=== PATIENT | female | born 1985 ===

== ENCOUNTER 2025-02-11 17:03 | Inpatient (IN) | payer BC, SELFPAY ==
[2025-02-11 17:14] VITALS: BP 142/86; PULSE 76
[2025-02-11 17:30] VITALS: BP 144/77; PULSE 75
[2025-02-11 17:31] VITALS: PULSE 82; O2SAT 99
[2025-02-11 17:45] VITALS: BP 132/78; PULSE 73
[2025-02-11 18:00] VITALS: BP 143/79; PULSE 71; BMI 30.1
--- NOTE | 2025-02-11 18:28 | P.OBHP_ITS ---
OB - H&P: HPI Labor/Induction History of Present Illness Date Seen: 02/11/25 Chief Complaint: The patient is a 39 year old 1 para 0 at 39+5 weeks gestation by LMP and confirmed with 1st trimester US, who presents for IOL for chronic hypertension. Chief complaint: Maternity Indications for induction: maternal hypertension Narrative: Emma Tran is a 39 year old at 39+5 weeks here for IOL for chronic HTN and AMA. She is currently well controlled without medication. She is not aware of any contractions, no LOF. Baby is active. History of Present Dating criteria: based on LMP care: good care Ultrasounds: normal 1st trimester US and normal mid trimester US (level 2) complications: chronic hypertension Labs Blood type: O (+) positive Rubella: immune RPR/VDLR: nonreactive GBS status: positive HBsAG: negative Review of Systems Status of ROS: Reports: 6 or more systems reviewed and unremarkable except as noted in History and below Meds Home Medications and Allergies Allergies Allergy/AdvReac Type Severity Reaction Status Date / Time ketorolac (From Toradol) Allergy Severe Difficulty Verified 02/11/25 02:17 Breathing morphine Allergy Mild Verified 02/11/25 17:48 OB - H&P: Exam Physical Exam: Vital signs: Pulse BP Pulse Ox 71 143/79 H 99 02/11/25 18:00 02/11/25 18:00 02/11/25 17:31 Constitutional: Constitutional: no acute distress Routine HEENT Exam: Head: Present atraumatic Routine Neck Exam: Neck: Present full ROM Routine Respiratory Exam: Respiratory: Present CTA bilaterally Routine Cardiovascular Exam: Cardiovascular: RRR Detailed Labor and Delivery Exam: Patient Gravid: yes Dilation (cm): 0 Cervix position: mid Consistency: medium Contraction frequency (min): 5 Fetus (Single): Station: -2 Amniotic Membrane Status: intact Heart Rate Baseline: 140 Monitor Accelerations: Present M onitor Decelerations: None Correction Variability: Moderate (6-25) Routine Back/Spine/Pelvis Exam: Back/Spine: full ROM Routine Skin Exam: Present intact Routine Neurological Exam: Present alert, oriented X3 and CN II-XII intact Routine Psychiatric Exam: Present normal affect and normal thought process OB - Problem Based A/P Additional Plan (1) Term : Status: Acute (2) Chronic hypertension affecting : Status: Acute Plan Cervix is not dilated enough to able to place a cook, will plan cytotec overnight to help with cervical ripening. Delivery/Labor/Induction Plan Plan: induction Induction method: per misoprostol protocol
[2025-02-12] VITALS (149 sets, daily range): BP systolic 79–138; BP diastolic 41–73; PULSE 48–139; RESP 12–20; TEMP 36.3–37.4; O2SAT 88–100
[2025-02-12] MEDS: ACETAMINOPHEN 500 MG TABLET 1000 MG PO ×2 (00:06→23:44)
[2025-02-12 00:24] LABS: Hematocrit 34.7 % (33.0-51.0); Hemoglobin* 11.9 gm/dL (12.0-16.0); Immature Granulocytes Pct Auto 1.3 %; Mean Corpuscular HGB Conc 34 gm/dL (32-36); Mean Corpuscular Hemoglobin 33 pg (26-34); Mean Corpuscular Volume 98 fL (80-100); RDW Coefficient of Variation % 13.0 % (11.5-15.5); Red Blood Count 3.56 m/uL (4.00-5.20); White Blood Count* 15.86 K/uL (4.50-11.00)
[2025-02-12 00:34] LABS: Immature Granulocytes Abs Auto 0.20 K/uL (0.00-0.30); Lymphocytes Absolute Auto 2.40 K/uL (0.90-2.90); Slide Review Reflex No
[2025-02-12] MEDS: ONDANSETRON ODT 4 MG TAB PO (05:17)
[2025-02-12] MEDS: LACTATED RINGERS 1000 ML 1,000 ML 1125 ML IV (06:25)
--- NOTE | 2025-02-12 09:00 | P.OBPN_ITS ---
Subjective Date Seen: 02/12/25 Narrative: pt here for IOL secondary to chronic hypertension. Received 3 doses vaginal cytotec overnight. Reports some cramping and round ligament pain. Objective Vital Signs: Last Vital Signs Temp 99.3 F 02/12/25 07:58 Pulse 71 02/12/25 07:58 Resp 12 02/12/25 07:58 BP 126/64 02/12/25 07:58 Pulse Ox 100 02/12/25 07:58 Pelvic Exam Dilation (cm): 1 Effacement (%): 50 Station: -1 Contractions Contraction pattern: Irregular Assessment Assessment: induction ongoing Station: -2 Heart Rate Baseline: 130 Longterm Variability: Moderate (6-25) Monitor Accelerations: Present Monitor Decelerations: None Plan Plan: at 39w6d gestation with chronic HTN here for IOL. Additional items as below: AMA on ASA 81 mg Stage I chronic HTN in early , normal since (no BP > 140/90). Per [facility] visit on 09/22/24, Given she has been normotensive and has never been on medication for HTN, reasonable to defer additional surveillance until and unless BP > 140/90 or medication is started. RUTH ANN on Lexapro GBS positive 1. IOL 2/2 chronic HTN - Cook catheter placed with 60 cc per balloon at 0815. Patient tolerated well. - Plan to leave for 12 hours, unless expelled on its own sooner. Will consider pit and AROM when able. - If pressures > 140/90, obtain PreE labs 2. GBS positive start ABX prophylaxis when in labor 3. RUTH ANN continue Lexapro Leslie Guthrie,
[2025-02-12] MEDS: ESCITALOPRAM 10 MG TABLET 5 MG PO (09:11)
[2025-02-12] MEDS: AMPICILLIN 2 GM in 0.9 % SODIUM CHLORIDE Mini-bag 100 ML IVPB (14:28)
[2025-02-12] MEDS: LACTATED RINGERS 1000 ML 1,000 ML 1200 ML IV (15:42)
[2025-02-12] MEDS: LIDOCAINE 2% (PF) 5 ML VIAL EPIDURAL (16:23)
[2025-02-12] MEDS: ROPIVACAINE 0.2% 100 ml 100 ML 12 MG EPIDURAL (16:25)
--- NOTE | 2025-02-12 16:32 | PM.ANBPRC ---
[facility] Social History Smoking Status: Never smoker Meds Home Medications and Allergies Allergies Allergy/AdvReac Type Severity Reaction Status Date / Time ketorolac (From Toradol) Allergy Severe Difficulty Verified 02/11/25 02:17 Breathing morphine Allergy Mild Verified 02/11/25 17:48 Results Labs Labs: Laboratory Results - last 24 hr 02/12/25 00:18 WBC 15.86 H RBC 3.56 L Hgb 11.9 L Hct 34.7 MCV 98 MCH 33 MCHC 34 RDW Coeff of Hira 13.0 Plt Count 293 Neut % (Auto) 73.4 H Lymph % (Auto) 15.0 L [place] % (Auto) 8.3 Eos % (Auto) 1.7 Baso % (Auto) 0.3 Neut # (Auto) 11.60 H Lymph # (Auto) 2.40 [place] # (Auto) 1.30 H Eos # (Auto) 0.30 Baso # (Auto) 0.00 Abs Immat Gran (auto) 0.20 Imm/Tot Granulo (auto) 1.3 Blood Type O Positive Antibody Screen NEGATIVE Vital Signs Vital Signs: Last Vital Signs Temp 98.9 F 02/12/25 14:15 Pulse 67 02/12/25 16:30 Resp 16 02/12/25 14:15 BP 106/57 L 02/12/25 16:30 Pulse Ox 100 02/12/25 16:31 Weight: 81.873 kg Height: 165.1 cm Anesthesia Procedures Epidural Insertion Patient Location: OB Start Time: 15:50 Stop Time: 16:50 Start Date: 02/12/25 Stop Date: 02/12/25 Reason for Block: procedure for pain Patient Position: sitting Performed By: Emmanuelle Martinez Preanesthetic Checklist: IV checked, risks and benefits discussed, monitors and equipment checked, pre-op evaluation, timeout performed and anesthesia consent Prep: chlorhexidine gluconate Monitoring: blood pressure monitoring, continuous pulse oximetry and heart rate Approach: midline Vertebral Space: lumbar (1-5) Epidural Technique: HERO saline Needle Type: Tuohy needle Injection Technique: continuous catheter (continuous catheter) Needle gauge: 17 Needle Length (cm): 10 cm Needle Insertion Depth (cm): 7 Catheter Gauge: 19 Catheter Type: multi-orifice Catheter at skin depth (cm): 15 Test Dose Result: negative and lidocaine 1.5% with epinephrine 1 to 200,000
[2025-02-12] MEDS: PHENYLEPHRINE 100 MCG/ML SYRINGE IVP ×3 (17:18→18:22)
--- NOTE | 2025-02-12 17:35 | P.OBPN_ITS ---
Subjective Date Seen: 02/12/25 Narrative: Patient feeling more comfortable with epidural. SROM occurred around 12:30 with clear fluid. Objective Vital Signs: Last Vital Signs Temp 98.1 F 02/12/25 17:04 Pulse 60 02/12/25 17:32 Resp 16 02/12/25 14:15 BP 98/46 L 02/12/25 17:32 Pulse Ox 100 02/12/25 17:32 Pelvic Exam Dilation (cm): 7 Effacement (%): 70 Station: 0 Contractions Contraction Frequency: Q3-5 min Assessment Station: -1 Heart Rate Baseline: 130 Monitor Accelerations: Present Monitor Decelerations: Variable Plan Plan: Recurrent variables and some late decelerations on FHT. Had made some progress. FSE and IUPC in place. Contraction mVUs are inadequate at this time. BPs have been low and patient has received several doses of both phenylephrine and ephedrine. Manager Mental Health on-call aware. Will continue to monitor.
[2025-02-12] MEDS: ePHEDrine sulfate 5 MG/ML inj 10 MG IVP ×2 (17:50→18:14)
[2025-02-12] MEDS: SODIUM CHLORIDE 0.9 % (FLUSH) 10 ML SYRINGE IVF (17:51)
[2025-02-12] MEDS: LACTATED RINGERS 1000 ML 1,000 ML 125 ML IV ×2 (18:01→23:47)
[2025-02-12] MEDS: AMPICILLIN 1 GM in 0.9 % SODIUM CHLORIDE Mini-bag 100 ML IVPB (18:29)
[2025-02-12] MEDS: AZITHROMYCIN 500 MG in 0.9 % SODIUM CHLORIDE 250 ml 250 ML 255 MG IVPB (20:26)
--- NOTE | 2025-02-12 20:35 | P.OBCN_ITS ---
OB - CN: HPI Date of Consult Time Seen by Provider: 20:35 Date Seen: 02/12/25 Patient: Noam Patient Consult date: 02/12/25 Requesting Physician: Monserrat Roberto MD Primary Care Provider: Leslie Guthrie DO Consult Narrative Reason for consult: nonreassuring FHTs Narrative: Emma is a 39 year old G 1 P 0 at 39 and 6/7 weeks gestation that was admitted to the Center on 02/11/25 for induction of labor due to chronic hypertension not on medication. Her blood pressure has been normal throughout her entire hospital course. I was asked to consult because the patient was having recurrent variable decelerations which improved with an amnio infusion and the patient in hands and knees position but her contractions are not adequate and with the recurrent deceleration not safe to add Pitocin for augmentation. It is my recommendation to perform a primary low-transverse C- section for nonreassuring heart rate tracing remote from delivery. Please see Dr. Guthrie's admission History and Physical note for details of the patient's course. History of Present Dating criteria: based on LMP Ultrasounds: normal 1st trimester US and normal mid trimester US complications: chronic hypertension History History 1 Elective abortions Para 0 Spontaneous abortions Hx # Term Pregnancies Ectopic pregnancies Hx # Pregnancies Multiple births Number of Living Children 0 Labs Blood type: O (+) positive Rubella: immune RPR/VDLR: nonreactive GBS status: positive HBsAG: negative OB Labs: Lab Assessment Start: 02/11/25 17:45 Freq: ONCE Status: Active Protocol: PC.OBGBS Activity Type Activity Date Activity User E-sign Co-sign Detail Recorded Client Recorded Date Recorded By Document 02/11/25 18:02 CUDDY No Response 02/11/25 18:03 CUDDYH 02/11/25 18:02 Lab Assessment GBS Status positive Is Patient Allergic to Penicillin? No Treatment Required OK Are Labs Available Yes Maternal Blood Type O Maternal RH Factor Positive Evaluate Maternal Rubella Immune Status Immune Hepatitis B Surface Antigen Negative Maternal HIV Status Negative Maternal Syphillis (RPR) Status Negative PFSH PFSH Social History What is your current living situation?: I presently have a place to live Problems where you live: no known problems In the past 12 months, utilities in danger of being shut off: no In past 12 months, lack of transportation kept you from medical appts, meetings, work, or getting things needed for daily living: no In the past 12 mos, have been you worried that your food would run out before you had money to buy more?: never true In the past 12 mos, the food you bought just didn't last and you didn't have money to buy more?: never true Smoking Status: Never smoker How often does anyone, including family, friends and others, physically hurt you : never How often does anyone, including family, friends and others, insult or talk down to you: never How often does anyone, including family, friends and others, threaten you with harm: never How often does anyone, including family, friends and others, scream or curse at you: never Meds Home Medications and Allergies Allergies Allergy/AdvReac Type Severity Reaction Status Date / Time ketorolac (From Toradol) Allergy Severe Difficulty Verified 02/11/25 02:17 Breathing morphine Allergy Mild Verified 02/11/25 17:48 OB - H&P: Exam Physical Exam: Vital signs: Temp Pulse Resp BP Pulse Ox 98 F 75 16 110/53 L 98 02/12/25 17:58 02/12/25 20:25 02/12/25 17:58 02/12/25 20:25 02/12/25 19:52 Narrative: General: Pleasant, , comfortable with an epidural in no acute distress. Vital signs: Included in her electronic medical record. Heart: Regular rate and rhythm without gallop, rub or murmur. Chest: Clear to auscultation bilaterally. Abdomen: Gravid, nontender FSE: Baseline: 135bpm. Moderate variability. Accelerations: Absent. Decelerations: Repetitive variable decelerations to as low as 60 beats per minute. Category 2. SVE: Per Dr. Guthrie: 8/90%/0 Extremities: No pain or edema. OB - Results Labs Labs: Short CBC 02/12/25 Range/Units 00:18 WBC 15.86 H (4.50-11.00) K/uL Hgb 11.9 L (12.0-16.0) gm/dL Hct 34.7 (33.0-51.0) % Plt Count 293 (140-440) K/uL OB - CN: A/P Assessment and Plan (1) Term : Status: Acute (2) Chronic hypertension affecting : Status: Acute (3) Non-reassuring heart rate or rhythm affecting management of mother: Status: Acute Plan 1. Recommended primary low-transverse section. 2. Consent form reviewed and signed. 3. Blood type: O positive. GBS: Positive with adequate treatment. 4. Operating room crew notified.
--- NOTE | 2025-02-12 20:44 | PM.PROC ---
Procedure Note Time Seen by Provider: 21:55 Date Seen: 02/12/25 Date of procedure: 02/12/25 Will [facility] bill your pro fee for this procedure?: Yes Procedure: Preoperative diagnosis: 39-year-old 1 para 0 at 39 and 6/7 weeks repetitive variable decelerations in the heart rate Postoperative diagnosis: Same Procedure: Primary low-transverse section, TAPS Anesthesia: Epidural Surgeon: Monserrat Roberto MD Metal Bench Patternmaker: Not applicable Quantitative blood loss: 548 mL IV Fluid: 600 mL Urine output: 50 mL, evette colored at the end of the procedure. Specimen: Placenta Drain(s): Armstrong to gravity Findings: A live female infant was delivered from the ROT position at 21:18 p.m.. Apgars were 8 at 1 min and 9 at 5 min respectively. weight: 6 lb 11 oz, 3045 g. Nuchal cord(s): yes: A body cord that the was delivered through. The placenta was delivered spontaneously and complete at 21:20 p.m.. Amniotic fluid: Clear. Normal uterus, fallopian tubes and ovaries were noted. Other findings: 1 cm anterior, serosal fibroid in the mid uterine body. Procedure: Emma was taken to the OR where epidural anesthetic was found be adequate. A Armstrong catheter was placed. The patient was then placed in the dorsal supine position with a leftward tilt. She was then prepped and draped in a normal sterile manner. A Pfannenstiel skin incision was made and carried through sharply to the underlying layer of fascia. Fascia was incised in the midline and this incision carried laterally with Hardy scissors. The superior aspect of fascial incision was grasped with Racheal clamps, tented up, and the rectus muscles dissected off with a combination of blunt and sharp dissection. The inferior aspect of the fascial incision was grasped with Racheal clamps, tented up and again the rectus muscles dissected off with a combination of blunt and sharp dissection. The rectus muscles were in the midline. The peritoneum was entered bluntly. This opening was extended bluntly. An Roly-O self-retaining retractor was placed. A bladder flap was not created. Uterus was incised in a low transverse manner in the midline. This incision carried laterally with blunt pressure on the inferior and superior aspects of the uterine incision. The amniotic sac was ruptured. The infant's head and body was delivered atraumatically. The infant was shown to the patient and her support person and then handed to waiting pediatric and nursing staff. The placenta was delivered spontaneously. The uterus was cleared of clots and debris. The uterine incision was re-approximated with the uterus in vivo. The 1st layer using 0-Vicryl in a running, locked manner. The 2nd layer using 0-Monocryl in a running, vertical, imbricating layer. Additional sutures needed for hemostasis: no. Excellent hemostasis was verified. The Roly retractor was removed. The rectus muscles were not reapproximated. The peritoneum was not repaired. The rectus muscles were then closely inspected to verify hemostasis. Hemostasis was obtained with bipolar cautery. The fascia was then re-approximated using 0-Maxon loop in a running manner. The subcutaneous tissue was then irrigated with saline and hemostasis obtained with bipolar cautery. The subcutaneous tissue was re-approximated using 3-0 plain gut interrupted sutures. The skin was reapproximated using 4-0 Monocryl in a running subcuticular manner. Exofin skin adhesive and a Mepilex dressing were applied. The patient tolerated this procedure well. Sponge, lap and instrument counts were correct x2 active to the procedure. Patient was taken to the recovery area in stable condition. The patient received 2g of IV Ancef and 500mg IV azithromycin prior to skin incision. Anesthesia: epidural Surgeon: Monserrat Hurley MD Estimated blood loss (mL): 548 IV fluids (mL): 600 Urine output (mL): 50 Pathology: specimen obtained, sent to pathology Condition: stable Disposition: floor
[2025-02-13] VITALS (9 sets, daily range): BP systolic 114–127; BP diastolic 62–73; PULSE 60–76; RESP 14–18; TEMP 36.3–36.8; O2SAT 97–99
--- NOTE | 2025-02-13 00:30 | P.ANES_ITS ---
Anesthesia Charges Start Date/Time Anesthesia Start Date: 02/12/25 Anesthesia Start Time: 20:52 Stop Date/Time Anesthesia Stop Date: 02/12/25 Anesthesia Stop Time: 22:10 Summary Emergency: BOMB SQUAD COMMANDER Coding CPT Codes CPT Codes: ANES/ANALG CS DELIVER ADD-ON - 50653 ([id number]) P2 - PATIENT W/MILD SYST DISEASE Additional Codes: Summary - Emergency: BOMB SQUAD COMMANDER ([id number])
--- NOTE | 2025-02-13 00:30 | W.ANESCHARGE ---
Anesthesia Charges Start Date/Time Anesthesia Start Date: 02/12/25 Anesthesia Start Time: 20:52 Stop Date/Time Anesthesia Stop Date: 02/12/25 Anesthesia Stop Time: 22:10 Summary Emergency: FLAKE OR SHRED ROLL OPERATOR Coding CPT Codes CPT Codes: ANES/ANALG CS DELIVER ADD-ON - 29420 ([id number]) P2 - PATIENT W/MILD SYST DISEASE Additional Codes: Summary - Emergency: FLAKE OR SHRED ROLL OPERATOR ([id number])
--- NOTE | 2025-02-13 00:31 | P.NB_ITS ---
Nerve Block Nerve Block Time Seen by Provider: 22:00 Date Seen: 02/12/25 Type of block requested by surgeon for post-operative analgesia: TAP Side: bilateral Time out performed: Yes Verification of patient name: Yes Verification of date of : Yes Name of person performing procedure: Emmanuelle Martinez Continuous monitoring Was continuous monitoring of O2 sat, B/P, color television console monitor, recorded every 15 minutes?: Yes Procedure Checklist: sterile prep, needles and gloves Ultrasound guided. Images saved: Yes Medications given in 5ml increments after negative aspiration: Marcaine %: 0.25 mL: 30 Needle gauge: 20 and Exparel mL: 10 Needle gauge: 20 Patient tolerated procedure well: Yes Block Charges Block Charge (with Pro Fee): TAP Bilateral Use of Ultrasound Machine for Block: Yes- US Guidance/pain block
[2025-02-13] MEDS: IBUPROFEN 600 MG TABLET PO ×4 (02:45→23:30)
[2025-02-13] MEDS: ACETAMINOPHEN 500 MG TABLET 1000 MG PO ×3 (06:23→21:15)
[2025-02-13 08:16] LABS: Hemoglobin* 10.8 gm/dL (12.0-16.0)
[2025-02-13] MEDS: ESCITALOPRAM 10 MG TABLET 5 MG PO (10:03)
--- NOTE | 2025-02-13 17:04 | P.OBPN_ITS ---
OB - PN:Subj Subjective Time Seen by Provider: 11:50 Date Seen: 02/13/25 Patient comments OB post-: no complaints, pain well controlled and tolerating diet [place] infant status: and doing well [place] feeding status: exclusively Narrative: Day 1:? Delivery at 39 and 6/7 weeks.? ?? Complications:? cHTN in ; C/section for distress. Emma feels well.? Her pain is well controlled with current medications.? She has no new complaints.? Armstrong catheter has not yet been removed, ambulation is improving.?Has a good appetite, is tolerating a general diet, is passing flatus, and has not had a bowel movement.? Has moderate amount of rubra lochia.? OB - PN: Obj Exam Physical Exam: Vital signs: Temp Pulse Resp BP Pulse Ox O2 Del Method 97.6 F 70 16 114/70 98 Room Air 02/13/25 12:49 02/13/25 12:49 02/13/25 12:49 02/13/25 12:49 02/13/25 12:49 02/13/25 12:49 Narrative: GENERAL APPEARANCE:? normal affect, alert, no distress? MOOD:? appropriate? CHEST:? clear to auscultation and percussion? HEART:? regular rate and rhythm? BREASTS: soft, nontender, no erythema, nipples intact, flat; using nipple shield ABDOMEN:? soft, non-tender the uterine fundus is firm @ U and is appropriate for the stage of recovery. Incision covered by C/D/I dressing.? EXTREMITIES:? normal and no edema? OB - PN: Obj Data Labs Labs: Laboratory Results - last 24 hr 02/12/25 02/13/25 00:18 08:11 Hgb 10.8 L RPR Screen Non Reactive OB - PN: A/P Delivery Assessment and Plan (1) care and examination of lactating mother: Status: Acute (2) Status post primary low transverse section: Status: Acute (3) Chronic hypertension affecting : Status: Acute Plan 39 year old on day 1.? 1. cares.?Remove Armstrong catheter. This CNM assisted in positioning and observed . 2. Anticipate discharge tomorrow.? Plan day: 1 Plan: routine care
[2025-02-14 00:50] VITALS: BP 121/72; PULSE 72; RESP 18; O2SAT 96
[2025-02-14 08:17] VITALS: BP 114/74; PULSE 60; RESP 16; TEMP 36.7; O2SAT 98
[2025-02-14] MEDS: ESCITALOPRAM 10 MG TABLET 5 MG PO (09:46)
[2025-02-14] MEDS: IBUPROFEN 600 MG TABLET PO (09:46)
[2025-02-14] MEDS: DOCUSATE SODIUM 100 MG CAPSULE PO (09:52)
--- NOTE | 2025-02-14 11:46 | P.DS_ITS ---
DS: Providers Provider Time Seen by Provider: 08:55 Date Seen: 02/14/25 Date of admission: 02/11/25 17:03 Primary care physician: Leslie Guthrie DO Admitting Clinician: Leslie Guthrie DO Attending Physician on discharge: Monserrat Roberto MD Date of Discharge: 02/14/25 DS: Diagnosis Discharge Diagnosis (1) Status post primary low transverse section: Status: Acute Exam Narrative: Exam Narrative: General: Pleasant, , well groomed woman in no acute distress. Vital signs: Per electronic medical record Heart: Regular rate and rhythm without gallop, rub or murmur. Chest: Clear to auscultation bilaterally. Abdomen: Soft, nontender, mildly distended. No CVA or flank tenderness. Incision: Clean, dry and intact with sutures and skin adhesive gel. Extremities: No pain or edema Const: Vital Signs, click to edit/add: Vital Signs - 24 hr 02/13/25 12:49 02/13/25 17:03 02/13/25 20:45 Temperature 97.6 F 97.3 F L Pulse Rate [Pulse Oximeter] 70 70 71 Respiratory Rate 16 16 18 Blood Pressure [Le ft Arm] 114/70 121/68 123/73 Pulse Oximetry 98 99 97 Oxygen Delivery Me thod Room Air Room Air Room Air 02/14/25 00:50 02/14/25 08:17 Temperature 98.1 F Pulse Rate [Pulse Oximeter] 72 60 Respiratory Rate 18 16 Blood Pressure [Le ft Arm] 121/72 114/74 Pulse Oximetry 96 98 Oxygen Delivery Me thod Room Air Room Air OB - DS: Summary Hospital Course Hospital Course: Emma is a 39 year old G 1 P 0 now 1 at 39 and 5/7 weeks gestation that was admitted to the Center on 02/11/25 for induction of labor due to chronic hypertension not on medication. The fetus had repetitive variable decelerations somewhat them going to as low as 60 beats per minute so an urgent section was recommended. She had an uncomplicated delivery. She delivered a viable female infant. She is breast feeding. the patient has done well. Her blood pressure has been completely normal . She is considering going home later today so discharge instructions and paperwork were completed. She decides to stay overnight it can be held and I will see her tomorrow. She is tolerating a regular diet, passing flatus and has appropriate/adequate urine output. Peripartum Data Procedures: Procedures Operation Date: 02/12/25 20:52 Actual Procedure Side Surgeon p Primary Low Transverse Section Monserrat Roberto MD Gender: Female Status at Discharge Functional status at discharge: independent ambulation Overall status at discharge: patient is progressing back to baseline Time Spent with Patient Time attestation: Total time spent providing and/or coordinating discharge services: Time spent: Less than 30 minutes Discharge Plan Discharge Disposition: Home, Self-Care Date of Admission: 02/11/25 17:03 Attending Provider on Discharge: Monserrat Roebrto Primary Care Provider: Leslie Guthrie Condition: Stable Anticipated Discharge Date/Time: 02/14/25 18:30 Discharge Medications: New docusate sodium 100 mg Capsule 100 mg PO BID PRN (Reason: constipation) Qty: 100 0RF ibuprofen 600 mg Tablet 600 mg PO Q6H PRN (Reason: Pain) Qty: 30 0RF oxycodone 5 mg Tablet 5 mg PO 3XD PRN (Reason: Pain) Qty: 21 0RF Discharge Orders: Discharge Order (Routine); Ordered 02/14/25 Ordered By: Monserrat Roberto Patient Education: (DC) Additional Instructions: ACTIVITY RESTRICTIONS: Lifting Restrictions: 20 pounds for 6 weeks Do not submerge incision under water X 2 weeks? Nothing vaginally for 6 weeks: no tampons or intercourse Do not drive while taking narcotic pain medication(s) No high impact/core exercises: 6 weeks Off Work or School for a minimum of 8 weeks NO RESTRICTIONS FOR: Walking Climbing stairs Being the passenger in a motor vehicle SYMPTOMS TO REPORT TO YOUR DOCTOR: Bleeding that saturates more than one pad per hour Passing clots larger than the size of a golf ball Pain not relieved by prescribed medication Fever: Oral temperature >/= 100.4 Fahrenheit A foul vaginal odor Difficulty in emotions, mood and functions Thoughts of hurting yourself and/or Painful, reddened area in your breast Any drainage, redness or tenderness in your IV/epidural sites or incision. Severe headache that doesn't improve after taking medications Changes in vision, including temporary loss of vision, blurred vision, and/or light sensitivity Upper abdominal pain (especially if under ribs on the right side) Decrease in urination or painful, frequent urinating Chest pain Shortness of breath Tenderness or pain with redness and/swelling in the calf(s) of your leg Concerns about your incision: increased pain, swelling, redness or drainage. Follow-up Appointments: 1. 2-week post-operative visit with OB: incision check, with provider who performed section is preferred: Monserrat Hurley MD. Clinic number: [phone]. 2. 6-week visit for an annual exam with your Family Medicine Provider at [facility]. For pain: 1. Ibuprofen 600mg every 6hr. 2. ES Tylenol 1000 mg (2 tablets) every 6 hours 3. Alternate the above medicines every 3 hours. For example: Take ibuprofen at 8:00 a.m., then Tylenol at 11:00 a.m., then ibuprofen 2:00 p.m., etc. Add oxycodone 1-2 tablets every 4-6 hours as needed for breakthrough pain. consultation services are available to all mothers and babies for the first year after delivery.? To make an appointment, please call [phone]. Activity Level: Other Discharge Diet: Regular Follow Up Appointments: Leslie Guthrie DO [Primary Care Provider, Family Practice] [facility] [Outside] Monserrat Roberto MD [Staff Physician, DEVELOPMENT EXPERT] Forms: [facility] Info Instructions
[2025-02-14] MEDS: ACETAMINOPHEN 500 MG TABLET 1000 MG PO (14:11)
== END 2025-02-14 14:10 | disposition home or self-care (01) | DRG 540 ==
PROVIDERS: Family Medicine; Admitting Provider Family Medicine; PCP Family Medicine; Visit Provider Obstetrics & Gynecology
PROC: 10D00Z1 Extraction of Products of Conception, Low, Open Approach (ICD-10-PCS; CPT 59514; principal; 2025-02-12 22:10)
DX: O10.92 Unspecified pre-existing hypertension complicating childbirth (principal); O76 Abnormality in fetal heart rate and rhythm complicating labor and delivery; G89.18 Other acute postprocedural pain; O99.824 Streptococcus B carrier state complicating childbirth; O99.344 Other mental disorders complicating childbirth; F41.1 Generalized anxiety disorder; Z3A.39 39 weeks gestation of pregnancy; Z37.0 Single live birth
CPT/HCPCS: 01967; 01968; 36415; 59200; 64488; 76942; 85018; 85025; 86592; 86850; 86900; 86901; 88307; 99140; A4314; A9270; C1726; J0290; J0456; J0665; J0666; J0690; J2371; J2405; J2590; J2795; J3010; J7050; J7120

== ENCOUNTER 2025-04-30 14:46 | Outpatient (CLI) | payer BC, SELFPAY ==
--- NOTE | 2025-04-30 16:39 | P.LACCB_ITS ---
Consult Note - Mom Date of Visit Date of visit: 04/30/25 Reason for consultation: Assistance Needed Visit Code: Visit Patient's Information Phone number: [phone] Para: 1 Allergies ketorolac (From Toradol) Allergy (Severe, Verified 02/27/25 11:27) Difficulty Breathing morphine Allergy (Mild, Verified 02/27/25 11:27) Work Plans: return to work 1 week before thanksgiving Delivery Information Gestational Age: 39+6 Gestational Weight For Age: AGA Weight: 3.045 kg Baby's Information Baby's Age at Visit: 11weeks Baby's Provider or Clinic: [facility] Jaundice: No Past Experience Past Experience: No Current Frequency of Day Feedings: every 2.5-3 hours Frequency of Night Feedings: 6-7 hr sleep stretch, then 3-4 hrs Both Breasts: Yes Suck: strong Latch: shallow Length of Time: 5-10 min ea side Goals: as long as possible Pumping Pumping: Yes Quantity Pumped: 1/2 oz ea breast at most Supplementing EBM Supplement: Yes Formula Supplement: Yes (takes 4 oz after ) Baby Elimination Number of Wet Diapers a Day: ea feeding Number of BM a Day: 4x/day Breast/Nipple Condition Breast Information: Breasts are symmetrical with rounded lower quadrants, intramammary distance is less than 1.5 inches. No erythema. Nipples are supple, everted prior to feeding. Breast Shape: Round Engorgement: No Maternal Nipple Condition - Left: Common Nipple (nipples every quite easily) Maternal Nipple Condition - Right: Common Nipple (nipples every quite easily) Sore Nipples: Yes Baby Assessment Skin: Normal Tongue/frenulum: Restricted mid-range (when baby sticks tongue out, the bottom curls back toward bottom lip) Palate: Narrow (slight) Lips: Relaxed Jaw Alignment: Symmetrical Mucosa: [place], moist Onsite Observation Pre-Feed weight: 5.326 kg Post-Feed weight: 5.35 kg Milk Transferred (mL): 24 Position: Cross cradle Attachment/latch-on achieved: Easily Suck pattern: Extended suck phase Swallow: Occasionally Behavior following feed: Alert, fussy Pre-Nursing Left Nipple: Within Normal Limits Pre-Nursing Right Nipple: Within Normal Limits Post-Nursing Left Nipple: Within Normal Limits Post-Nursing Right Nipple: Within Normal Limits Assessments/Interventions Assessments/Interventions: Mom delivered via unplanned for distress She did breastfeed right away but her nipples were considered flat/inverted and she was given a nipple shield to use; it was a 24 mm shield Baby was also noted to have a slight tongue tie (mom also has one); but since baby was latching with a nipple shield it was presumed to be ok Baby was 1 oz above hospital discharge weight at her 2 week check up and family started supplementing with formula; they have worked their way up to 4 oz after ; baby feeds 7x/day Mom pumps occasionally after feedings with a Spectra pump and will get 1oz at most; her RIGHT side makes more than her LEFT. She uses a 24 mm flange but she doesn't think it fits right. She also has a Mom Cozy pump but hasn't used it yet; she has a 20mm flange for that pump. Her nipples do get sore with nursing, sometimes creased sometimes not. Lisa latched to mom's RIGHT breast, latched very shallowly; relatched with a deeper latch, more reported much more comfortable and stayed nursing for 5 mi nutes before she got fussy, came off and wouldn't go back on. Transferred 14 ml of milk Lisa then latched to mom's LEFT breast, latched more deeply this time and nursed for 4 minutes before coming off and would not relatch. Transferred 6ml of milk. Mom tried latching her to the RIGHT breast again, latched willingly, but only stayed on for 3 minutes, transferred 4 ml of milk. Lisa needed gentle support to stay latched, especially with the deeper latch as the goal. Total milk transferred 24 ml Discussed milk volume transferred in relation to caloric needs; mom then fed baby 4 oz formula; baby took this with a Dr. Lo bottle over 20 minutes Some slurping/clicking sounds noted; no drooling noted. Mom reports baby is very gassy. Education provided: Asymmetric latch technique for wide/deep latch to increase milk, Transfer for baby and increase comfort for mom, Supply/demand nature of milk supply, Need for frequent stimulation/milk removal, Alternative feeding methods (SNS, cup, finger feeding, bottling) and Pumping for milk management Feeding Plan: Discussed early use of nipple shield and tongue tie may have compromised her milk supply, especially without pumping for consistet milk removal. Emma would like to try and increase her supply. Following plan developed: Continue to feed baby at the breast with ea feeding; try switch nursing for increased engagement in feeding; 5/5/5/5 minutes on ea breast Pump after feedings as able; discussed trying for 3 times/day, especially early AM feedings and one in the evening; more if able Discussed appropriate flange size for either the Spectra pump or the Mom Kyra; nipples measure 18mm so expect around a 20mm flange to fit well (24mm too large) Discussed working with settings on both pumps; and she may get more with Mom Cozy if she can move around with the pump reviewed hydration and calorie needs for a mama Discussed galactogogues-no hard and fast research, but do seem to help some women so mom would like to try. Discussed Liquid Gold and Milkapalooze from the [employer] line Will hold off on referral for tongue tie release at this time; want to see if mom can increase her supply first. If she can, and if baby still can't transfer milk well, consider referral for release of TOT. Time Spent Time spent with patient (min): 100 Meds Home Medications and Allergies Home Medications ?Medication ?Instructions ?Recorded ?Confirmed ?Type ibuprofen 600 mg tablet 600 mg PO Q6H PRN Pain #30 t abs 02/14/25 02/27/25 Rx Allergies Allergy/AdvReac Type Severity Reaction Status Date / Time ketorolac (From Toradol) Allergy Severe Difficulty Verified 02/27/25 11:27 Breathing morphine Allergy Mild Verified 02/27/25 11:27
== END 2025-04-30 14:47 | disposition home or self-care (01) ==
PROVIDERS: PCP Family Medicine; Visit Provider Obstetrics & Gynecology
DX: Z39.1 Encounter for care and examination of lactating mother (principal)
CPT/HCPCS: G0463

== ENCOUNTER 2025-05-12 13:07 | Outpatient (CLI) | payer BC, SELFPAY ==
--- NOTE | 2025-05-12 17:03 | P.LACF_ITS ---
Follow-Up Note: Mom Date of visit Date of visit: 05/12/25 Reason for consultation: Assistance Needed and Low Milk Supply Visit Code: Visit Patient's Information Allergies ketorolac (From Toradol) Allergy (Severe, Verified 02/27/25 11:27) Difficulty Breathing morphine Allergy (Mild, Verified 02/27/25 11:27) Current Frequency of Day Feedings: every 2.5-3 hrs Frequency of Night Feedings: 7-8 hrs at night Both Breasts: Yes Suck: strong Latch: shallow, won't tolerate a deeper latch Length of Time: 5 min ea side, Pumping Pumping: Yes Quantity Pumped: up to 1/2 oz ea side if baby doesn't feed ; collecting about 4 oz total/24h Supplementing EBM Supplement: Yes Formula Supplement: Yes Baby Elimination Number of Wet Diapers a Day: ea feeding Number of BM a Day: several a day Onsite Observation Pre-feed weight: 5.718 kg Post-Feed weight: 5.724 kg Milk Transferred (mL): 6 Pre-Nursing Left Nipple: Within Normal Limits Pre-Nursing Right Nipple: Within Normal Limits Post-Nursing Left Nipple: Within Normal Limits Post-Nursing Right Nipple: Within Normal Limits Assessments/Interventions Assessments/Interventions: Lisa latched well to mom's right breast, transferred 6 ml of milk. More fussy and not willing to latch to mom's left breast this time. Took 4 oz formula via bottle Mom has been taking milkapalooza; has not started the Liquid Gold but will do so today. She is pumping 4 times/day after feedings, occas 5 times. She is up to collecting 4oz total/day and uses this for one of the bottle feedings. She is hesitant to have baby's tongue clipped; especially knowing it may not really help with baby nursing better and increase her supply. She tried switch nursing and baby was not interested, gets very fussy when going back to the first breast, so mom will keep her on first breast as long as she wants and allows baby to say when to switch sides. Current plan is to continue with the pumping routine; discussed feeding/pumping routine for when mom s back to work. We discussed flange size, as mom thinks the 20mm is too large; her nipple does not swell much with pumpings so agree an 18 or 19mm might work better for her. She will try this. Education provided: Early feeding cues to maximize timing of latching, Asymmetric latch technique for wide/deep latch to increase milk, Transfer for baby and increase comfort for mom, Supply/demand nature of milk supply, Hand expression, Alternative feeding methods (SNS, cup, finger feeding, bottling) and Pumping for milk management Follow-Up Suggested follow up: Appointment as needed Time Spent Time spent with patient (min): 90 Meds Home Medications and Allergies Home Medications ?Medication ?Instructions ?Recorded ?Confirmed ?Type ibuprofen 600 mg tablet 600 mg PO Q6H PRN Pain #30 t abs 02/14/25 02/27/25 Rx Allergies Allergy/AdvReac Type Severity Reaction Status Date / Time ketorolac (From Toradol) Allergy Severe Difficulty Verified 02/27/25 11:27 Breathing morphine Allergy Mild Verified 02/27/25 11:27
== END 2025-05-12 13:08 | disposition home or self-care (01) ==
LOC: OB LAC 13:07
PROVIDERS: PCP Family Medicine; Visit Provider Obstetrics & Gynecology
DX: Z39.1 Encounter for care and examination of lactating mother (principal)
CPT/HCPCS: G0463